=== PATIENT | female | born 2000 | race Two or more races ===

== ENCOUNTER 2023-02-26 13:14 | Emergency (ER) | payer OTHER ==
[~2023-02-26] VITALS: Ht 177.8 cm; Wt 72.6 kg
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
[2023-02-26] MEDS ORDERED: IBUPROFEN 600 MG TABLET PO ONE (15:00)
[2023-02-26] MEDS ORDERED: HYDROCODONE/APAP 5/325MG TABLET PO ONE (15:00)
--- NOTE | 2023-02-26 15:08 | NUR ---
URINE SAMPLE SEN TO LAB
[2023-02-26] MEDS ORDERED: IBUPROFEN 600 MG TABLET ONE (15:09)
[2023-02-26] MEDS ORDERED: HYDROCODONE/APAP 5/325MG TABLET ONE (15:09)
--- NOTE | 2023-02-26 16:45 | NUR ---
PATIENT TAKEN TO CT VIA [facility]
[2023-02-26] MEDS ORDERED: IBUP-1953 PO (18:50)
--- NOTE | 2023-02-26 19:20 | NUR ---
Patient discharged to home in stable condition. Written and verbal after care instructions given. Patient verbalizes understanding of instruction.
[2023-02-26 19:26] VITALS: BP 105/75
== END 2023-02-26 19:20 | disposition home or self-care (01) ==
LOC: ER 13:52
DX: S02.2XXA Fracture of nasal bones, initial encounter for closed fracture (principal); S00.511A Abrasion of lip, initial encounter; V19.9XXA Pedal cyclist (driver) (passenger) injured in unspecified traffic accident, initial encounter; Y93.I9 Activity, other involving external motion; Y92.89 Other specified places as the place of occurrence of the external cause; Y99.8 Other external cause status
CPT/HCPCS: 70450-TC; 70486-TC; 84703-TC; J7030